=== PATIENT | female | born 1970 | race Caucasian/White ===

== ENCOUNTER 2017-11-21 05:17 | Emergency (ER) | payer MEDICAID, OTHER ==
[2017-11-21 05:31] VITALS: BP 126/62; PULSE 83; RESP 16; TEMP 97.5; O2SAT 96
--- NOTE | 2017-11-21 05:41 | EDPHY ---
H & P Time Seen by Provider: 11/21/17 05:41 HPI/ROS: 47-year-old female presents complaining severe nasal congestion, facial pain, sore throat and cough. Cold symptoms have been for approximately 10 days however her cough and body aches and been only about 2-3 days. Review of systems As per HPI General positive fevers positive chills positive fatigue HEENT no eye pain no eye discharge. No eye redness, positive sore throat, positive URI sore throat Respiratory positive cough no shortness of breath Cardiac no chest pain, no peripheral edema GI no abdominal pain, no diarrhea, no constipation, no nausea, no vomiting no flank pain, no hematuria, no dysuria Musculoskeletal no myalgias, no joint pain Heme no easy bruising, no easy bleeding Endo no polyuria, no polydipsia Skin no rashes, no pruritus Neuro no syncope, no dizziness, no headaches Psych is no suicidal ideation, no homicidal ideation Past Medical/Surgical History: Bipolar Migraine Social History: Denies tobacco alcohol or drug use Smoking Status: Never smoked Physical Exam: 47-year-old female alert and oriented no acute distress Afebrile Atraumatic normocephalic Extraocular muscles intact, anicteric Nares mild yellowish discharge Oropharynx mild erythema no tonsillar swelling no exudate no uvular deviation, tolerating own secretions Neck supple no lymphadenopathy Lungs clear to auscultation bilaterally, diminished at right base Heart regular rate and rhythm Abdomen normoactive bowel sounds soft nontender Extremities no cyanosis clubbing or edema Skin no rash Constitutional: Initial Vital Signs Temperature (C) 36.4 C 11/21/17 05:28 Heart Rate 83 11/21/17 05:28 Respiratory Rate 16 11/21/17 05:28 Blood Pressure 126/62 H 11/21/17 05:28 O2 Sat (%) 96 11/21/17 05:28 O2 Delivery Mode Room Air Allergies/Adverse Reactions: prochlorperazine edisylate [From Compazine] Allergy (Intermediate, Verified 05:27) MUSCLE CONTRACTIONS prochlorperazine maleate [From Compazine] Allergy (Intermediate, Verified 05:27) MUSCLE CONTRACTIONS promethazine HCl [From Phenergan] Allergy (Intermediate, Verified 11/21/17 05:27 ) MUSCLE CONTRACTIONS Home Medications: Medication Instructions Recorded Amoxicillin/Clavulanate Pot 875 mg PO BID #20 tab 11/21/17 [Augmentin 875 MG TAB (*)] Paliperidone Palmitate [Invega 39 mg IM Q30D 11/21/17 Sustenna] Topiramate [Topamax 100MG (*)] 100 mg PO BID 11/21/17 Medical Decision Making ED Course/Re-evaluation: Patient seen and evaluated for cold symptoms, cough body aches. Influenza neg Chest x-ray negative Impression sinusiits Plan augmentin, flonase decongestant, otc pcp Differential Diagnosis: Differential diagnosis considered but not limited to: URI, pharyngitis, bronchitis, sinusitis, pneumonia, influenza - Data Points Laboratory Results: 11/21/17 05:49 Influenza A,B Rapid NEGATIVE FOR FLU (NEGATIVE) Departure - Departure Disposition: Home, Routine, Self-Care Clinical Impression: Sinusitis Condition: Good Instructions: Rhinosinusitis (ED) Referrals: Patient,NotPresent [Primary Care Provider] - As per Instructions Prescriptions: Amoxicillin/Clavulanate Pot [Augmentin 875 MG TAB (*)] 875 mg PO BID #20 tab
== END 2017-11-21 06:13 | disposition home or self-care (01) ==
LOC: CED 05:17
DX: J32.9 Chronic sinusitis, unspecified (principal)
CPT/HCPCS: 71046-PO; 87400-PO

== ENCOUNTER → 2018-11-17 | Outpatient (CLI) | payer MEDICAID | LOC: FIMAGING 16:09 | PROVIDERS: ATTEND Psychiatry & Neurology Neurology | DX: G24.01 Drug induced subacute dyskinesia (principal) ==